=== PATIENT | female | born 1990 | race Caucasian/White ===

== ENCOUNTER 2018-06-03 16:04 | Inpatient (IN) | payer OTHER ==
[2018-06-03] MEDS ORDERED: OXYTOCIN 30 UNITS/LR 500 ML IV ×3 (17:00→21:00)
[2018-06-03] MEDS ORDERED: LIDOCAINE 1% (MPF) 30 ML INJ INJ (17:00)
[2018-06-03] MEDS ORDERED: BUTORPHANOL 2 MG INJ IV (17:00)
[2018-06-03] MEDS ORDERED: IBUPROFEN 600 MG TAB PO (17:00)
[2018-06-03] MEDS ORDERED: CARBOPROST 250 MCG INJ IM (17:00)
[2018-06-03] MEDS ORDERED: MISOPROSTOL 200 MCG TAB PR (17:00)
[2018-06-03] MEDS ORDERED: METHYLERGONOVINE 0.2 MG INJ IM (17:00)
[2018-06-03] MEDS: LACTATED RINGER'S 1,000 ML IV* (17:02)
[2018-06-03 17:19] LABS: ADD MAN DIFF? NO
[2018-06-03 17:22] LABS: WHITE BLOOD COUNT 6.6 10^3/ul (4.8-10.8)
[2018-06-03 17:22] LABS: BASOPHILS % 0.2 % (0.0-2.0); EOSINOPHILS % 0.5 % (0.0-7.0); HEMATOCRIT 35.7 % (37.0-47.0); HEMOGLOBIN 11.5 g/dl (12.0-16.0); LYMPHOCYTES # 1.6 10^3/ul (0.8-2.9); LYMPHOCYTES % 23.5 % (15.0-51.0); MEAN CORPUSCULAR HEMOGLOBIN 27.6 pg (29.0-33.0); MEAN CORPUSCULAR HGB CONC 32.2 g/dl (32.0-37.0); MEAN CORPUSCULAR VOLUME 85.8 fl (82.0-101.0); MEAN PLATELET VOLUME 12.8 fl (7.4-10.4); MONOCYTE # 0.5 10^3/ul (0.3-0.9); MONOCYTES % 7.9 % (0.0-11.0); NEUTROPHIL # 4.5 10^3/ul (1.6-7.5); NEUTROPHILS % 67.4 % (39.0-77.0); PLATELET COUNT 162 10^3/UL (140-415); RED BLOOD COUNT 4.16 10^6/ul (4.20-5.40); RED CELL DISTRIBUTION WIDTH 14.2 % (11.5-14.5)
[2018-06-03 17:41] LABS: INR 0.95; PROTIME 12.8 Sec (11.9-14.9)
[2018-06-03 17:42] LABS: PARTIAL THROMBOPLASTIN TIME 27.5 Sec (25.0-35.0)
[2018-06-03 18:13] LABS: HEPATITIS B SURFACE ANTIGEN NEGATIVE (NEGATIVE)
[2018-06-03] MEDS: OXYTOCIN 30 UNITS/LR 500 ML IV (21:07)
[2018-06-03] MEDS ORDERED: FENTAnyl 2MCG/ML-ROPIV 0.2% 100 ML (21:29)
[2018-06-03] MEDS ORDERED: FENTAnyl 2MCG/ML-ROPIV 0.2% 100 ML BAG EPI (22:00)
[2018-06-03] MEDS ORDERED: ONDANSETRON 4 MG INJ IV (22:00)
[2018-06-03] MEDS ORDERED: NALOXONE (0.4 MG/ML) INJ IV (22:00)
[2018-06-04] MEDS: LACTATED RINGER'S 1,000 ML IV* ×3 (00:16→05:50)
[2018-06-04] MEDS: OXYTOCIN 30 UNITS/LR 500 ML IV (02:02)
[2018-06-04] MEDS ORDERED: DEXTROSE 5%-LR 1,000 ML IV (02:18)
[2018-06-04] MEDS ORDERED: OXYTOCIN 30 UNITS/LR 500 ML IV (02:30)
[2018-06-04] MEDS ORDERED: OXYCODONE/ASPIRIN (4.88/325) TAB PO (02:30)
[2018-06-04] MEDS ORDERED: DIPHENHYDRAMINE 50 MG INJ IV (02:30)
[2018-06-04] MEDS ORDERED: ONDANSETRON 4 MG INJ IV (02:30)
[2018-06-04] MEDS ORDERED: ZOLPIDEM 5 MG TAB PO (02:30)
[2018-06-04] MEDS ORDERED: DIBUCAINE 1% 30 GM OINT PR (02:30)
[2018-06-04] MEDS ORDERED: MISOPROSTOL 200 MCG TAB PR (02:30)
[2018-06-04] MEDS ORDERED: HYDROCODONE/APAP (5/325) TAB PO (02:30)
[2018-06-04] MEDS ORDERED: MAGNESIUM HYDROXIDE 30ML CUP PO (02:30)
[2018-06-04] MEDS ORDERED: METHYLERGONOVINE 0.2 MG INJ IM (02:30)
[2018-06-04] MEDS ORDERED: ACETAMINOPHEN 325 MG TAB PO (02:30)
[2018-06-04] MEDS ORDERED: CARBOPROST 250 MCG INJ IM (02:30)
[2018-06-04] MEDS: WITCH HAZEL/GLYCERIN PAD PR (04:55)
[2018-06-04] MEDS: BENZOCAINE 20% 56 ML SPRAY TOP (04:55)
[2018-06-04] MEDS: LANOLIN 7 GM TUBE TOP (04:56)
[2018-06-04] MEDS: IBUPROFEN 800 MG TAB PO ×4 (05:50→23:25)
[2018-06-04] MEDS: SENNA/DOCUSATE NA (8.6MG/50MG) TAB PO ×2 (09:11→21:03)
[2018-06-04 15:14] LABS: RAPID PLASMA REAGIN NONREACTIVE (NR)
[2018-06-05] MEDS: IBUPROFEN 800 MG TAB PO ×3 (05:37→18:00)
[2018-06-05 10:16] LABS: ADD MAN DIFF? NO
[2018-06-05 10:20] LABS: ABNORMAL IP MESSAGE 1; BASOPHILS % 0.1 % (0.0-2.0); EOSINOPHILS # 0.1 10^3/ul (0.0-0.5); EOSINOPHILS % 1.1 % (0.0-7.0); HEMATOCRIT 32.7 % (37.0-47.0); HEMOGLOBIN 10.5 g/dl (12.0-16.0); LYMPHOCYTES # 2.1 10^3/ul (0.8-2.9); LYMPHOCYTES % 29.2 % (15.0-51.0); MEAN CORPUSCULAR HEMOGLOBIN 28.5 pg (29.0-33.0); MEAN CORPUSCULAR HGB CONC 32.1 g/dl (32.0-37.0); MEAN CORPUSCULAR VOLUME 88.6 fl (82.0-101.0); MEAN PLATELET VOLUME 13.4 fl (7.4-10.4); MONOCYTE # 0.4 10^3/ul (0.3-0.9); MONOCYTES % 5.1 % (0.0-11.0); NEUTROPHIL # 4.7 10^3/ul (1.6-7.5); NEUTROPHILS % 64.1 % (39.0-77.0); PLATELET COUNT 143 10^3/UL (140-415); RED BLOOD COUNT 3.69 10^6/ul (4.20-5.40); RED CELL DISTRIBUTION WIDTH 14.4 % (11.5-14.5)
[2018-06-05 10:20] LABS: WHITE BLOOD COUNT 7.3 10^3/ul (4.8-10.8)
[2018-06-05 10:25] LABS: POSITIVE DIFF @See below
[2018-06-06] MEDS: IBUPROFEN 800 MG TAB PO ×3 (00:02→11:38)
[2018-06-06] MEDS: MEASLES,MUMPS,RUBELLA VACCINE INJ SC* (09:00)
[2018-06-06] MEDS: DIPHTH/TET/ACEL PERTUSS (ADULT) 0.5 ML VIAL IM* (11:39)
== END 2018-06-06 13:30 | disposition home or self-care (01) | DRG 775 ==
LOC: OBT 16:04 → PP1 06-04 03:34 → L-D 16:13 → OBT 16:36 → L-D 16:46
PROVIDERS: Obstetrics & Gynecology
PROC: 10E0XZZ Delivery of Products of Conception, External Approach (ICD-10-PCS; principal; 2018-06-03)
PROC: 3E033VJ Introduction of Other Hormone into Peripheral Vein, Percutaneous Approach (ICD-10-PCS; 2018-06-03)
PROC: 0HQ9XZZ Repair Perineum Skin, External Approach (ICD-10-PCS; 2018-06-03)
DX: O70.0 First degree perineal laceration during delivery (principal); O69.81X0 Labor and delivery complicated by cord around neck, without compression, not applicable or unspecified; Z3A.39 39 weeks gestation of pregnancy; Z37.0 Single live birth
CPT/HCPCS: 85025; 85610; 85730; 86592; 86850; 86900; 86901; 87340; 90715; 99464